=== PATIENT | male | born 1990 | race Caucasian/White ===

== ENCOUNTER 2023-06-16 02:40 | Emergency (ER) | payer OTHER ==
[2023-06-16] MEDS ORDERED: HYDROmorphone 0.5 MG/0.5 ML SYRINGE IVP STA (03:13)
[2023-06-16] MEDS ORDERED: ONDANSETRON 4 MG/2 ML VIAL IVP STA (03:13)
[2023-06-16] MEDS ORDERED: SODIUM CHLORIDE 0.9% 1,000 ML IV STA (03:13)
[2023-06-16] MEDS ORDERED: PANTOPRAZOLE 40 MG VIAL IV STA (03:13)
--- NOTE | 2023-06-16 04:18 | ED Physician Documentation ---
PD HPI NVD - Stated complaint Stated Complaint: N/V/D - Chief complaint Chief Complaint: Abd Pain - History obtained from History obtained from: Patient - Additonal information Additional information: The patient comes to the emergency department chief complaint of watery diarrhea for the last 3 days. He states he also had some upper abdominal pain tonight and ended up vomiting several times. His significant other had a similar illness but not nearly as bad as him. The patient states that he has been able to eat and drink but still just feels dehydrated because his intake has been much less than usual. He tried taking Pepto-Bismol at home but this did not really seem to help. No other complaints at this time. PD PAST MEDICAL HISTORY - Past Medical History Past Medical History: No - Past Surgical History Past Surgical History: No - Present Medications Home Medications: Ambulatory Orders Medication Instructions Recorded Confirmed Loperamide [Imodium] 2 mg PO BID PRN #12 cap 06/16/23 Ondansetron Odt [Zofran] 4 mg TL Q6H PRN #20 tablet 06/16/23 - Allergies Allergies/Adverse Reactions: Allergies Allergy/AdvReac Type Severity Reaction Status Date / Time No Known Drug Allergies Allergy Verified 06/16/23 03:00 - Social History Does the pt smoke?: No PD ED PE NORMAL - Vitals Vital signs reviewed: Yes - General General: Alert and oriented X 3, No acute distress, Well developed/nourished - HEENT HEENT: Atraumatic, PERRL, EOMI, Moist mucous membranes - Neck Neck: Supple, no meningeal sign - Cardiac Cardiac: RRR, No murmur - Respiratory Respiratory: No respiratory distress, Clear bilaterally - Abdomen Abdomen: Soft, Non distended, Other (Mild epigastric tenderness to palpation, no rebound or guarding.) - Derm Derm: Warm and dry - Extremities Extremities: No deformity - Neuro Neuro: Alert and oriented X 3 - Psych Psych: Normal mood, Normal affect Results - Vitals Vitals: Vital Signs - 24 hr 06/16/23 02:51 Temperature 36.9 C Heart Rate 93 Respiratory 16 Rate Blood Pressure 125/73 O2 Saturation 99 Oxygen O2 Source Room air PD Medical Decision Making - ED course Complexity details: considered differential, d/w patient, d/w family ED course: The patient was treated symptomatically with IV fluids, Zofran, and a small dose of Dilaudid, after which he was found to be feeling better. He was also given a dose of Protonix. I discussed with the patient that his symptoms are most consistent with one of the many viral illnesses that are going around the community right now and causing the same symptoms. We discussed the self- limited nature of this illness. We have discussed symptomatic management at home as well as usual indications for follow-up and return. Departure - Departure Disposition: Home, Self Care Clinical Impression: Gastroenteritis Abdominal pain Qualifiers: Abdominal location: epigastric Qualified Code(s): R10.13 - Epigastric pain Condition: Stable Instructions: ED Gastroenteritis Viral Prescriptions: Loperamide [Imodium] 2 mg PO BID PRN #12 cap PRN Reason: Diarrhea Ondansetron Odt [Zofran] 4 mg TL Q6H PRN #20 tablet PRN Reason: Nausea / Vomiting Comments: Your symptoms are very much consistent with the gastrointestinal illness we have seen going around the community in recent weeks. In general, viral illnesses are self-limited and resolve on their own, given time. Please product picker the medication for nausea and diarrhea at the [facility] in [place] first thing tomorrow. Get plenty of rest tonight and stick to just clear liquids and [id number], simple starchy foods like saltine crackers, oyster crackers, and Ramen noodles, until your diarrhea starts to improve. Please be sure you are drinking 8 to 10 cups of water per day to keep yourself from getting dehydrated. You may also substitute some of the water for electrolyte drinks if you wish. Please avoid juice or milk until your stomach and intestines are feeling better. You may schedule a follow-up appointment with your primary doctor as needed. Forms: PCP List, Activity restrictions
[2023-06-16 05:05] VITALS: BP 115/74; O2SAT 100
== END 2023-06-16 04:58 | disposition home or self-care (01) ==
LOC: ED 02:40
DX: K52.9 Noninfective gastroenteritis and colitis, unspecified (principal)
CPT/HCPCS: 36415; 96374; 96375; 99283; J1170